=== PATIENT | female | born 1965 | race Caucasian/White ===

== ENCOUNTER 2022-07-11 18:11 | Inpatient (IN) | payer OTHER, MEDICAID ==
[~2022-07-11] VITALS: Ht 165.1 cm; Wt 99.8 kg
[2022-07-11 18:35] VITALS: BP 113/68
--- NOTE | 2022-07-11 18:36 | NUR ---
Patient taken to bed 1.
[2022-07-11] MEDS ORDERED: DILTIAZEM 25 MG/5 ML VIAL IVP ONE ×2 (19:40→22:01)
--- NOTE | 2022-07-11 20:00 | NUR ---
56YR OLD FEMALE C/O "TREMORS". SPASTIC MUSCLE TWITCHING. DENIES PAIN SOB OR CP. PT IS A RENAL PT. ON BEDSIDE FILAMENT CUTTER. HOB ELEVATED. PT IS A&OX4. RESP EVEN AND UNLABORED. GAIT UNSTEADY AND USING BEDSIDE COMMODE. SIDE RAILS UPX2. BED AT LOWEST POSITION ATORVASTATIN OMEPRAZOLE DM HTN RENAL DISEASE
[2022-07-11 20:05] LABS: PHOSPHORUS 6.9 mg/dL (2.5-4.9)
[2022-07-11 21:11] LABS: BASOPHILS # (AUTO) 0.1 K/uL (0.00-0.22); BASOPHILS % (AUTO) 0.5 % (0.0-2.0); EOSINOPHILS # (AUTO) 0.2 K/uL (0-0.4); HEMOGLOBIN 12.1 g/dL (12.0-16.0); LYMPHOCYTES # (AUTO) 1.8 K/uL (2.5-16.5); LYMPHOCYTES % (AUTO) 12.3 % (20.5-51.1); MEAN CORPUSCULAR HEMOGLOBIN 30 pg (27-31); MEAN CORPUSCULAR HGB CONC 33 g/dL (33-37); MEAN CORPUSCULAR VOLUME 92.1 fL (80-94); MONOCYTES # (AUTO) 0.9 K/uL (0.8-1.0); MONOCYTES % (AUTO) 5.7 % (1.7-9.3); NEUTROPHILS % (AUTO) 80.5 % (42.2-75.2); PLATELET COUNT (AUTO) 321 K/uL (140-450); RED BLOOD CELL COUNT(AUTO) 4.02 MIL/uL (4.20-5.40); RED CELL DISTRIBUTION WIDTH 16.6 % (11.6-13.7); WHITE BLOOD COUNT (AUTO) 14.9 K/uL (4.8-10.8)
[2022-07-11 21:29] LABS: ALBUMIN 2.9 g/dL (3.4-5.0); CARBON DIOXIDE 24.6 mmol/L (21-32); POTASSIUM 4.6 mmol/L (3.5-5.1); TOTAL BILIRUBIN 0.5 mg/dL (0.0-1.0)
[2022-07-11] MEDS ORDERED: cefTRIAXone 1,000 MG VIAL ONE (22:04)
--- NOTE | 2022-07-12 00:26 | NUR ---
PT RESTING IN BED HOB ELEVATED. RESP EVEN AND UNLABORED. PT ON BEDSIDE QUALITY SUPERVISOR. BED AT LOWEST POSITION
--- NOTE | 2022-07-12 01:41 | NUR ---
COVID SWAB COLLECTED AND SENT TO LAB
[2022-07-12] MEDS ORDERED: ZOLPIDEM 5 MG TAB ONE (01:55)
[2022-07-12] MEDS ORDERED: ALLO100T21 PO (01:59)
[2022-07-12] MEDS ORDERED: NIFE30TE5 PO (02:00)
[2022-07-12] MEDS ORDERED: ATA25 PO (02:01)
[2022-07-12] MEDS ORDERED: LYR75 PO (02:02)
[2022-07-12] MEDS ORDERED: METO25TE2 PO (02:03)
[2022-07-12] MEDS ORDERED: WARF-83 PO (02:07)
[2022-07-12] MEDS ORDERED: ASPI-1749 PO (02:09)
[2022-07-12] MEDS ORDERED: ROSU10TA1 PO (02:09)
[2022-07-12] MEDS ORDERED: MONT10TA35 PO (02:10)
[2022-07-12] MEDS ORDERED: CITA40TA13 PO (02:11)
[2022-07-12] MEDS ORDERED: CLON0.5T PO (02:11)
[2022-07-12] MEDS ORDERED: ZOLP5TAB1 PO (02:12)
[2022-07-12] MEDS ORDERED: ONDA-188 PO (02:13)
--- NOTE | 2022-07-12 03:31 | NUR ---
PATIENT IS RESTING . 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 RESP EVEN AND UNLABORED. ON 2L O2 SPO2 96%. NO DISTRESS NOTED SIDE RAILS UP X2 BED AT LOWEST POSITION. PENDING BED AVAIL FOR TELE
[2022-07-12 09:00] VITALS: BP 175/86
[2022-07-12] MEDS ORDERED: POTASSIUM CHLORIDE 10 MEQ TABER PO PRN (10:10)
[2022-07-12] MEDS ORDERED: ZOLPIDEM 5 MG TAB PO PRN (10:10)
[2022-07-12] MEDS ORDERED: DOCUSATE SODIUM 100 MG GELCAP PO PRN (10:10)
[2022-07-12] MEDS ORDERED: guaiFENesin DM 200/20 MG-10 ML 10 ML UDC PO PRN (10:10)
[2022-07-12] MEDS ORDERED: WARFARIN 5 MG TAB PO SCH (10:10)
[2022-07-12] MEDS ORDERED: ONDANSETRON 4 MG/2 ML VIAL IM/IVP PRN (10:10)
[2022-07-12] MEDS: NIFEdipine 30 MG TABER PO SCH (10:56)
[2022-07-12] MEDS: ASPIRIN 81 MG TAB.CHEW PO SCH (10:56)
[2022-07-12] MEDS: allopurinoL 100 MG TAB PO SCH (10:56)
[2022-07-12] MEDS: PREGABALIN 25 MG CAP PO SCH ×2 (11:57→21:39)
[2022-07-12 12:13] VITALS: BP 164/90
[2022-07-12 12:49] LABS: CHOL/HDL RATIO 1.8 (1-4.5); FREE T4 (FREE THYROXINE) 0.91 ng/dL (0.76-1.46); MAGNESIUM 2.1 mg/dL (1.8-2.4); THYROID STIMULATING HORMONE 1.81 uIU/mL (0.34-3.74)
[2022-07-12 12:57] LABS: PHOSPHORUS 9.1 mg/dL (2.5-4.9)
[2022-07-12 14:01] LABS: PROTHROMBIN TIME 170.9 secs (10.8-13.4)
--- NOTE | 2022-07-12 14:14 | NUR ---
DR KRAMER MADE AWARE OF CRITICAL LABS - PT 170.9 , PTT 88, INR NOT CALCULATING (LAB STATED IT WAS TOO HIGH TO CALCULATE).
--- NOTE | 2022-07-12 14:19 | NUR ---
PATIENT HAS BEEN SCREENED AND CATEGORIZED MODERATE NUTRITION RISK. PATIENT WILL BE SEEN WITHIN 3-5 DAYS OF ADMISSION. / [address]
[2022-07-12 16:00] VITALS: BP 172/83
[2022-07-12 20:00] VITALS: BP 154/80
[2022-07-12] MEDS: HYDROXYZINE HYDROCHLORIDE 25 MG TAB PO SCH (21:00)
[2022-07-12] MEDS: SIMVASTATIN 10 MG TAB PO SCH (21:39)
[2022-07-12] MEDS: ACETAMINOPHEN 325 MG TAB PO PRN (23:27)
[2022-07-13] VITALS: BP 151/63
[2022-07-13 04:00] VITALS: BP 162/73
[2022-07-13 07:09] LABS: T4 (THYROXINE) 6.3 ug/dL (4.5-12.0)
[2022-07-13 07:47] LABS: BASOPHILS # (AUTO) 0.1 K/uL (0.00-0.22); BASOPHILS % (AUTO) 0.5 % (0.0-2.0); CARBON DIOXIDE 18.5 mmol/L (21-32); EOSINOPHILS # (AUTO) 0.3 K/uL (0-0.4); EOSINOPHILS % (AUTO) 2.4 % (0.0-4.0); HEMATOCRIT 32.3 % (36-48); HEMOGLOBIN 10.6 g/dL (12.0-16.0); LYMPHOCYTES # (AUTO) 2.3 K/uL (2.5-16.5); LYMPHOCYTES % (AUTO) 15.8 % (20.5-51.1); MEAN CORPUSCULAR HEMOGLOBIN 30 pg (27-31); MEAN CORPUSCULAR HGB CONC 33 g/dL (33-37); MEAN CORPUSCULAR VOLUME 92.8 fL (80-94); MONOCYTES # (AUTO) 1.4 K/uL (0.8-1.0); MONOCYTES % (AUTO) 9.3 % (1.7-9.3); NEUTROPHILS # (AUTO) 10.4 K/uL (1.8-7.7); PLATELET COUNT (AUTO) 284 K/uL (140-450); POTASSIUM 5.5 mmol/L (3.5-5.1); RED BLOOD CELL COUNT(AUTO) 3.48 MIL/uL (4.20-5.40); RED CELL DISTRIBUTION WIDTH 16.2 % (11.6-13.7); WHITE BLOOD COUNT (AUTO) 14.5 K/uL (4.8-10.8)
[2022-07-13 08:00] VITALS: BP 148/81
[2022-07-13 08:16] LABS: PROTHROMBIN TIME 123.3 secs (10.8-13.4)
[2022-07-13 08:22] LABS: CREATININE 11.8 mg/dL (0.6-1.3)
[2022-07-13] MEDS: ASPIRIN 81 MG TAB.CHEW PO SCH (09:00)
[2022-07-13] MEDS: METOPROLOL SUCCINATE 50 MG TABER PO SCH (09:00)
[2022-07-13] MEDS: NIFEdipine 30 MG TABER PO SCH (09:00)
[2022-07-13] MEDS: HYDROcodone/APAP 7.5/325 MG 1 TAB PO PRN ×2 (09:43→15:36)
[2022-07-13] MEDS: MONTELUKAST SODIUM 10 MG TAB PO SCH (09:45)
[2022-07-13] MEDS: clonazePAM 0.5 MG TAB PO SCH (09:45)
[2022-07-13] MEDS: allopurinoL 100 MG TAB PO SCH (09:46)
[2022-07-13] MEDS: HYDROXYZINE HYDROCHLORIDE 25 MG TAB PO SCH ×2 (09:46→22:01)
[2022-07-13] MEDS: CITALOPRAM 20 MG TAB PO SCH (09:46)
[2022-07-13] MEDS: PREGABALIN 25 MG CAP PO SCH ×2 (09:47→22:02)
--- NOTE | 2022-07-13 10:05 | NUR ---
PT REQUESTED O2 TUBING EXTENSION - REQUEST CALLED IN TO RESPIRATORY DEPT.
--- NOTE | 2022-07-13 11:45 | NUR ---
DC PLANNING SW MET WITH PATIENT AT BEDSIDE TO COMPLETE ASSESSMENT.PATIENTS MOTHER JARED WAS IN THE ROOM, PATIENT PROVIDED PERMISSION FOR MOTHER TO STAY WHILE COMPLETING ASSESSMENT. PATIENT RESIDES AT HOME WITH HER MOTHER AT THE ADDRESS LISTED. PATIENT IDENTIFIED JARED (MOM) EMERGENCY CONTACT AND MDM. PATIENT REPORTS HAVING AD IN PLACE HOWEVER, REPORTS THAT SHE JUST NEEDS TO FIND IT. PATIENT REPORTS MEETING WITH PCP REGULARLY 9EVERY 3-4 MONTHS)LAST VISIT, 1 MONTH AGO. PATIENT REPORTS MEDICATION COMPLIANCE AND DENIES BARRIERS IN ACCESSING NEEDED MEDICATIONS. PATIENT REPORTS PICKING UP MEDICATIONS FROM [facility] [address] IN THE [facility], WHEN NEEDED. PATIENT REPORTS BEING AMBULATORY WITH OCCASIONAL DME ASSISTANCE; CANE. PATIENT REPORTS RECEIVING DIALYSIS AT [facility] , CHAIR TIME 12:45PM-4:15PM ON //. PATIENT REPORTS DRIVING HERSELF TO DIALYSIS APPTS. PATIENT REPORTS DIABETES HX AND REPORTS THAT DIABETES IS TYPICALLY MANAGED WELL. PATIENT DENIES HX OF HH/SNF PLACEMENT. PATIENT DENIES SA HX. PATIENT REPORTS MH HX OF ANXIETY, PATIENT CURRENTLY DOES NOT MEET WITH THERAPIST. PATIENT DECLINED RESOURCES FOR MENTAL HEALTH RESOURCES AND REPORTED THAT SHED LIKE TO GET HER HEALTH UNDER CONTROL BEFORE SEEKING MH TX. PATIENT REPORTS ADEQUATE FAMILY SUPPORT (MOM, NEIGHBORS & FRIENDS) PATIENT REPORTS DC PLAN IS TO RETURN HOME W/ MOM PROVIDING TRANSPORTATION AND AIDING IN REQUIRED CARE, IF NEEDED. SW INQUIRED ON RESOURCES NEEDED, PATIENT DECLINED AT THIS TIME.
[2022-07-13 12:00] VITALS: BP 148/81
--- NOTE | 2022-07-13 13:10 | NUR ---
SKIN ASSESSMENT DONE WITH THIS 56 Y/O PT. AAX4 ABLE TO TURN AND REPOSITION. NO OPEN SKIN. PT. IS RECEIVING HD.LEFT UPPER ARM AV SHUNT IS TAKING CARE BY DIALYSIS NURSE. PT. ADMITTED WITH MULTIPLE SKIN BRUISES AND ECCHYMOSIS TO ANTERIOR AND POSTERIOR TRUNK OF BODY AND LIMBS. PER PT. LONG TIME USE OF BLOOD THINNER. RECOMMEND TO APPLY HYDRAGUARD TO ANTERIOR AND POSTERIOR TRUNK OF BODY AND LIMBS BID AND CORNEL.
--- NOTE | 2022-07-13 15:40 | NUR ---
PT REFUSING IV SITE RESTART. PT AGREED TO SODA FOR NAUSEA AND TOOK SOME. MILDLY EFFECTIVE. PT THEN TOOK NORCO FOR C/O PAIN W WASH DOWN WITH SMALL AMT OF SODA.
--- NOTE | 2022-07-13 19:30 | NUR ---
RECEIVED PT ENDORSEMENT FROM DAY SHIFT NURSE FOR CONTINUITY OF CARE. PT IS AWAKE, ALERT AND VERBALLY RESPONSIVE. PT IS ON BED, ON RENAL DIET AND IS CONTINENT, ABLE TO GO TO RESTROOM WITH ASSIST. PT IS WITH MULTIPLE BRUISES ON EXTREMITIES. AV SHUNT ON LEFT FOREARM INTACT AND PATENT. CONTINUE MONITORING.
[2022-07-13 20:00] VITALS: BP 158/81
[2022-07-13] MEDS: SIMVASTATIN 10 MG TAB PO SCH (22:02)
--- NOTE | 2022-07-13 23:00 | NUR ---
PT BP 196/69, P 77, O2 SAT 98%, R 20, T 98.6. REPORTED TO DR. LOLA MD ORDER HYDRALAZINE 10 MG IVP Q 6 HRS PRN WHEN SBP > 160. ORDER CARRIED OUT.
--- NOTE | 2022-07-13 23:33 | NUR ---
PT AGREE TO HAVE IV LINE. IV INSERTED TO ON THE RIGHT HAND 24 G. FLUSHING WELL.
[2022-07-13] MEDS: hydrALAZINE 20 MG/ML VIAL IVP PRN (23:59)
[2022-07-14] VITALS: BP 196/69
[2022-07-14] MEDS: HYDROcodone/APAP 7.5/325 MG 1 TAB PO PRN ×2 (00:23→20:41)
--- NOTE | 2022-07-14 00:23 | NUR ---
PT COMPLAINTS OF PAIN BLE OF 04/01. PAIN MED NORCO ADMINISTERED OR JOSE RAMON.
[2022-07-14] MEDS: HYDRAGUARD CREAM TP SCH ×2 (01:13→12:47)
--- NOTE | 2022-07-14 01:23 | NUR ---
REASSESS, PAIN IS REDUCED TO 1/10. PT IS ASLEEP.
[2022-07-14 04:00] VITALS: BP 131/68
--- NOTE | 2022-07-14 06:00 | NUR ---
AV SHUNT ON LEFT FOREARM NOTED WITH MINIMAL BLEEDING, REDRESSING AND PLACE PRESSURE. PT AWAKE, ALERT AND ORIENTED.
[2022-07-14 07:36] LABS: BASOPHILS # (AUTO) 0.1 K/uL (0.00-0.22); BASOPHILS % (AUTO) 0.6 % (0.0-2.0); EOSINOPHILS # (AUTO) 0.1 K/uL (0-0.4); EOSINOPHILS % (AUTO) 0.5 % (0.0-4.0); HEMATOCRIT 31.2 % (36-48); HEMOGLOBIN 10.2 g/dL (12.0-16.0); LYMPHOCYTES # (AUTO) 2.6 K/uL (2.5-16.5); LYMPHOCYTES % (AUTO) 17.2 % (20.5-51.1); MEAN CORPUSCULAR HEMOGLOBIN 30 pg (27-31); MEAN CORPUSCULAR HGB CONC 33 g/dL (33-37); MEAN CORPUSCULAR VOLUME 93.4 fL (80-94); MONOCYTES # (AUTO) 1.2 K/uL (0.8-1.0); MONOCYTES % (AUTO) 7.9 % (1.7-9.3); NEUTROPHILS # (AUTO) 11.3 K/uL (1.8-7.7); NEUTROPHILS % (AUTO) 73.8 % (42.2-75.2); PLATELET COUNT (AUTO) 299 K/uL (140-450); RED BLOOD CELL COUNT(AUTO) 3.34 MIL/uL (4.20-5.40); RED CELL DISTRIBUTION WIDTH 16.6 % (11.6-13.7); WHITE BLOOD COUNT (AUTO) 15.3 K/uL (4.8-10.8)
[2022-07-14 07:55] LABS: PROTHROMBIN TIME 86.3 secs (10.8-13.4)
[2022-07-14 08:00] VITALS: BP_SYST 131; BP_SYST 156; BP_DIAS 68; BP_DIAS 75
[2022-07-14 08:04] LABS: ANION GAP 20.5 (8-16); CARBON DIOXIDE 26.9 mmol/L (21-32); POTASSIUM 4.4 mmol/L (3.5-5.1)
[2022-07-14 08:27] LABS: CREATININE 8.5 mg/dL (0.6-1.3)
[2022-07-14] MEDS: PREGABALIN 25 MG CAP PO SCH ×2 (10:04→20:42)
[2022-07-14] MEDS: CITALOPRAM 20 MG TAB PO SCH (10:04)
[2022-07-14] MEDS: ASPIRIN 81 MG TAB.CHEW PO SCH (10:05)
[2022-07-14] MEDS: NIFEdipine 30 MG TABER PO SCH ×3 (10:05→13:19)
[2022-07-14] MEDS: MONTELUKAST SODIUM 10 MG TAB PO SCH (10:05)
[2022-07-14] MEDS: allopurinoL 100 MG TAB PO SCH (10:05)
[2022-07-14] MEDS: METOPROLOL SUCCINATE 50 MG TABER PO SCH (10:06)
[2022-07-14] MEDS: HYDROXYZINE HYDROCHLORIDE 25 MG TAB PO SCH ×2 (10:06→20:42)
[2022-07-14] MEDS: clonazePAM 0.5 MG TAB PO SCH (10:09)
--- NOTE | 2022-07-14 10:10 | NUR ---
ALL SCHEDULED MEDS GIVEN. PT IS STABLE. NO DISTRESS NOTED. WILL CONTINUE TO MONITOR.
[2022-07-14 12:00] VITALS: BP_SYST 156; BP_SYST 173; BP_DIAS 69; BP_DIAS 75
[2022-07-14] MEDS: hydrALAZINE 20 MG/ML VIAL IVP PRN (12:07)
--- NOTE | 2022-07-14 13:45 | NUR ---
CONTACTED DR. STREET REGARDING PATIENT'S DIALYSIS TREATMENT TODAY. DIALYSIS NOTIFIED DR. STREET TO HOLD DIALYSIS DUE TO BLEEDING AT DIALYSIS. MD AGREES TO HOLD TREATMENT UNTIL BLEEDING STOPS. WILL RESUME TOMORROW PER MD.
[2022-07-14 16:00] VITALS: BP_SYST 140; BP_SYST 173; BP_DIAS 53; BP_DIAS 69
--- NOTE | 2022-07-14 17:45 | NUR ---
CHECKED ON PATIENT. PT IS STABLE. NO DISTRESS NOTED. WILL CONTINUE TO MONITOR.
--- NOTE | 2022-07-14 19:40 | NUR ---
ENDORSED TO LEGAL MEDIATOR NURSE FOR CONTINUITY OF CARE. PT IS STABLE.
--- NOTE | 2022-07-14 19:41 | NUR ---
GET THE REPORT FROM MORNING NURSE RADHA, PATIENT IS LYING ON BED, PATIENT IS ALERT ORIENTED X4, ALL FALL PRECAUTION MEASURE ARE IN PLACE, CALL LIGHT IS WITHIN THE REACH, WILL CONTINUE TO MONITOR PATIENT.
[2022-07-14 20:00] VITALS: BP 119/59
[2022-07-14] MEDS: SIMVASTATIN 10 MG TAB PO SCH (20:43)
--- NOTE | 2022-07-14 20:44 | NUR ---
PATIENT IS LYING ON BED, NO ANY COMPLAIN OF SHORTNESS OF BREATH AT THIS TIME, VITAL SIGN IS WITHIN THE NORMAL RANGE, PATIENT IS COMPLAINING OF PAIN 6/10, GAVE NORCO 7.5MG PO PRN PER DOCTOR ORDER,ALL OTHER SCHEDULE MEDICATION IS GIVEN PER DOCTOR ORDER, ASK PATIENT ABOUT ALLERGY TO SIMVASTATIN, PATIENT SAID SHE TAKE THAT AND SHE DID NOT HAD ANY REACTION OR ADVERSE EFFECT, SHE WANTS TO TAKE IT, CALL LIGHT IS WITHIN THE REACH, WILL CONTINUE TO MONITOR PATIENT.
[2022-07-15] VITALS: BP 145/53
--- NOTE | 2022-07-15 00:05 | NUR ---
PATIENT IV LINE IS INFILTRATED, PATIENT IS REFUSING TO PUT NEW IV LINE AT THIS TIME, CALL LIGHT IS WITHIN THE REACH, WILL CONTINUE TO MONITOR PATIENT.
[2022-07-15] MEDS: HYDRAGUARD CREAM TP SCH ×2 (00:43→13:00)
--- NOTE | 2022-07-15 00:45 | NUR ---
PATIENT IS LYING ON BED, NO ANY COMPLAIN OF PAIN OR SHORTNESS OF BREATH AT THIS TIME, VITAL SIGN IS WITHIN THE NORMAL RANGE, CALL LIGHT IS WITHIN THE REACH, WILL CONTINUE TO MONITOR PATIENT.
[2022-07-15 04:00] VITALS: BP 149/57
--- NOTE | 2022-07-15 04:27 | NUR ---
PATIENT IS LYING ON BED, NO ANY COMPLAIN OF PAIN OR SHORTNESS OF BREATH AT THIS TIME, VITAL SIGN IS WITHIN THE NORMAL RANGE, ALL OTHER SCHEDULE MEDICATION IS GIVEN PER DOCTOR ORDER, CALL LIGHT IS WITHIN THE REACH, WILL CONTINUE TO [id number] PATIENT.
[2022-07-15 06:40] LABS: BASOPHILS # (AUTO) 0.1 K/uL (0.00-0.22); BASOPHILS % (AUTO) 0.5 % (0.0-2.0); EOSINOPHILS # (AUTO) 0.4 K/uL (0-0.4); EOSINOPHILS % (AUTO) 2.6 % (0.0-4.0); HEMATOCRIT 29.2 % (36-48); HEMOGLOBIN 9.5 g/dL (12.0-16.0); LYMPHOCYTES # (AUTO) 3.5 K/uL (2.5-16.5); LYMPHOCYTES % (AUTO) 23.4 % (20.5-51.1); MEAN CORPUSCULAR HEMOGLOBIN 30 pg (27-31); MEAN CORPUSCULAR HGB CONC 33 g/dL (33-37); MEAN CORPUSCULAR VOLUME 92.6 fL (80-94); MONOCYTES # (AUTO) 1.4 K/uL (0.8-1.0); MONOCYTES % (AUTO) 9.4 % (1.7-9.3); NEUTROPHILS # (AUTO) 9.5 K/uL (1.8-7.7); NEUTROPHILS % (AUTO) 64.1 % (42.2-75.2); PLATELET COUNT (AUTO) 310 K/uL (140-450); RED BLOOD CELL COUNT(AUTO) 3.15 MIL/uL (4.20-5.40); RED CELL DISTRIBUTION WIDTH 16.2 % (11.6-13.7); WHITE BLOOD COUNT (AUTO) 14.9 K/uL (4.8-10.8)
[2022-07-15 06:49] LABS: ANION GAP 23.3 (8-16); POTASSIUM 5.3 mmol/L (3.5-5.1)
[2022-07-15 06:50] LABS: CREATININE 11.1 mg/dL (0.6-1.3)
[2022-07-15 06:53] LABS: PROTHROMBIN TIME 61.5 secs (10.8-13.4)
--- NOTE | 2022-07-15 07:18 | NUR ---
GAVE THE REPORT TO MORNING NURSE KIRBY FOR CONTINUOS OF CARE , PATIENT IS STABLE.
--- NOTE | 2022-07-15 07:37 | NUR ---
got report from the night nurse, PT SLEEPING no sob, .[email or web address]
[2022-07-15 08:00] VITALS: BP 138/58
[2022-07-15] MEDS: CITALOPRAM 20 MG TAB PO SCH (08:34)
[2022-07-15] MEDS: NIFEdipine 30 MG TABER PO SCH (08:35)
[2022-07-15] MEDS: HYDROXYZINE HYDROCHLORIDE 25 MG TAB PO SCH ×2 (08:35→20:11)
[2022-07-15] MEDS: ASPIRIN 81 MG TAB.CHEW PO SCH (08:35)
[2022-07-15] MEDS: clonazePAM 0.5 MG TAB PO SCH (08:38)
[2022-07-15] MEDS: MONTELUKAST SODIUM 10 MG TAB PO SCH (08:39)
[2022-07-15] MEDS: PREGABALIN 25 MG CAP PO SCH ×2 (08:39→20:11)
[2022-07-15] MEDS: allopurinoL 100 MG TAB PO SCH (08:39)
[2022-07-15] MEDS: METOPROLOL SUCCINATE 50 MG TABER PO SCH (08:39)
--- NOTE | 2022-07-15 10:22 | NUR ---
PT IS IN DIALYSIS NOW. [id number]
[2022-07-15] MEDS ORDERED: MECLIZINE 25 MG TAB PO PRN (11:40)
[2022-07-15] MEDS ORDERED: POLYETHYLENE GLYCOL 17 GM/PKT PO SCH (11:44)
[2022-07-15 12:00] VITALS: BP 111/35
--- NOTE | 2022-07-15 12:13 | NUR ---
DIALYSIS STOPPED BY ORDER ACCORDING TO THE DIALYSIS NURSE, TWO LITTER OUT. PT GIVEN MED FOR DIZZINESS ORDERED, AND ALSO FOR CONSTIPATION .[id number]
--- NOTE | 2022-07-15 13:25 | NUR ---
PT REFUSED THE MORNING CHEWABLE ASPIRIN, SAYING SHE NG NOT NEED NOW,MED RETURN TO [facility], SAYING SHE NG NOT NEED NOW.[id number] .[id number]
[2022-07-15 16:00] VITALS: BP 128/56
--- NOTE | 2022-07-15 19:58 | NUR ---
GET THE REPORT FROM MORNING NURSE KIRBY , PATIENT IS LYING ON BED, PATENT IS ALERT ORIENTED X4, ALL FALL PRECAUTION MEASURE ARE IN PLACE, CALL LIGHT IS WITHIN THE REACH, WILL CONTINUE TO MONITOR PATIENT.
[2022-07-15 20:00] VITALS: BP 92/50
[2022-07-15] MEDS: SIMVASTATIN 10 MG TAB PO SCH (20:13)
--- NOTE | 2022-07-15 20:15 | NUR ---
PATIENT IS LYING ON BED, NO ANY COMPLAIN OF PAIN OR SHORTNESS OF BREATH AT THIS TIME, VITAL SIGN IS WITHIN THE NORMAL RANGE, ALL SCHEDULE MEDICATION IS GIVEN PER DOCTOR ORDER, CALL LIGHT IS WITHIN THE REACH, WILL CONTINUE TO MONITOR PATIENT.
--- NOTE | 2022-07-15 21:01 | NUR ---
MASSAGE DOCTOR LOLA ABOUT PATIENT REFUSING TO PUT NEW IV, AND ITS BLEEDING FROM PREVIOUS IV SITE, WAITING FOR DOCTOR TO RESPONSE, CALL LIGHT IS WITHIN THE REACH, WILL CONTINUE TO MONITOR PATIENT.
[2022-07-15] MEDS ORDERED: LIDOCAINE MPF 1% 5 ML ONE (21:32)
[2022-07-15] MEDS ORDERED: cefTRIAXone 1,000 MG VIAL ONE (21:32)
--- NOTE | 2022-07-15 21:51 | NUR ---
DOCTOR SWITCHED IV ROCEPHIN TO IM, GAVE ROCEPHIN 1GN WITH XYLOCAINE 1% IM , CALL LIGHT IS WITHIN THE REACH, WILL CONTINUE TO MONITOR PATIENT.
[2022-07-15] MEDS ORDERED: cefTRIAXone 1,000 MG in LIDOCAINE MPF 1% 2.1 ML IM SCH (22:00)
[2022-07-15] MEDS: ACETAMINOPHEN 325 MG TAB PO PRN (22:51)
--- NOTE | 2022-07-15 22:56 | NUR ---
PATIENT IS COMPLAINING OF RIGHT HAND PAIN, GAVE TYLENOL 650 MG PO PRN PER DOCTOR ORDER, CALL LIGHT IS WITHIN THE REACH, WILL CONTINUE TO MONITOR PATIENT.
[2022-07-16] VITALS: BP 100/63
[2022-07-16] MEDS: HYDRAGUARD CREAM TP SCH ×2 (01:00→12:31)
[2022-07-16 04:00] VITALS: BP 128/59
[2022-07-16 06:46] LABS: PROTHROMBIN TIME 37.1 secs (10.8-13.4)
[2022-07-16 06:55] LABS: BASOPHILS # (AUTO) 0.2 K/uL (0.00-0.22); BASOPHILS % (AUTO) 1.1 % (0.0-2.0); EOSINOPHILS # (AUTO) 0.4 K/uL (0-0.4); EOSINOPHILS % (AUTO) 2.4 % (0.0-4.0); HEMATOCRIT 29.9 % (36-48); HEMOGLOBIN 9.6 g/dL (12.0-16.0); LYMPHOCYTES # (AUTO) 3.9 K/uL (2.5-16.5); LYMPHOCYTES % (AUTO) 25.8 % (20.5-51.1); MEAN CORPUSCULAR HEMOGLOBIN 30 pg (27-31); MEAN CORPUSCULAR HGB CONC 32 g/dL (33-37); MEAN CORPUSCULAR VOLUME 94.3 fL (80-94); MONOCYTES # (AUTO) 1.5 K/uL (0.8-1.0); MONOCYTES % (AUTO) 9.9 % (1.7-9.3); NEUTROPHILS # (AUTO) 9.3 K/uL (1.8-7.7); NEUTROPHILS % (AUTO) 60.8 % (42.2-75.2); PLATELET COUNT (AUTO) 335 K/uL (140-450); RED BLOOD CELL COUNT(AUTO) 3.17 MIL/uL (4.20-5.40); RED CELL DISTRIBUTION WIDTH 16.6 % (11.6-13.7); WHITE BLOOD COUNT (AUTO) 15.2 K/uL (4.8-10.8)
--- NOTE | 2022-07-16 07:06 | NUR ---
GAVE THE REPORT TO MORNING NURSE LI FOR CONTINUOS OF CARE, PATIENT IS STABLE.
[2022-07-16 07:26] LABS: ANION GAP 27.9 (8-16); POTASSIUM 4.9 mmol/L (3.5-5.1)
[2022-07-16 07:45] LABS: CREATININE 8.8 mg/dL (0.6-1.3)
[2022-07-16 08:00] VITALS: BP 132/55
[2022-07-16] MEDS: HYDROXYZINE HYDROCHLORIDE 25 MG TAB PO SCH (09:00)
[2022-07-16] MEDS: ASPIRIN 81 MG TAB.CHEW PO SCH (09:00)
[2022-07-16] MEDS: NIFEdipine 30 MG TABER PO SCH (09:02)
[2022-07-16] MEDS: clonazePAM 0.5 MG TAB PO SCH (09:03)
[2022-07-16] MEDS: MONTELUKAST SODIUM 10 MG TAB PO SCH (09:04)
[2022-07-16] MEDS: allopurinoL 100 MG TAB PO SCH (09:04)
[2022-07-16] MEDS: METOPROLOL SUCCINATE 50 MG TABER PO SCH (09:04)
[2022-07-16] MEDS: PREGABALIN 25 MG CAP PO SCH (09:04)
[2022-07-16] MEDS: CITALOPRAM 20 MG TAB PO SCH (09:05)
[2022-07-16] MEDS ORDERED: NIFE60TE5 PO (11:43)
[2022-07-16 11:46] VITALS: BP 143/75
--- NOTE | 2022-07-16 13:29 | NUR ---
0730 Pt. in bed, resting quietly, vss, no distress 0900 MD at bedside, pt. to go home today if no bleeding noted at av shunt site. Given am meds, held aspirin. 1000 No bleeding at av shunt site, new dressing applied. Nephrology md at bedside, ok for pt. to go home from his standpoint. 1230 Dc instructions gone over with pt, she verbalized understanding, signed copy given to staff, pt. has her copy for take home. Pt. to follow up with her pmd and is not to take coumadin or aspirin until she sees her doctor. All belongings accounted for. 1300 Pt. taken to her car in wheelchair, no distress noted, her mother is to drive her home. She will follow up with case management on Monday for Neurology outpt. appt.
== END 2022-07-16 13:20 | disposition home or self-care (01) | DRG 291 ==
LOC: MED 18:11 → MTU 07-12 00:02
PROVIDERS: ADMIT Family Medicine; ATTEND Family Medicine
DX: I13.2 Hypertensive heart and chronic kidney disease with heart failure and with stage 5 chronic kidney disease, or end stage renal disease (principal); E43 Unspecified severe protein-calorie malnutrition; I50.43 Acute on chronic combined systolic (congestive) and diastolic (congestive) heart failure; N17.0 Acute kidney failure with tubular necrosis; N18.6 End stage renal disease; J96.01 Acute respiratory failure with hypoxia; E87.1 Hypo-osmolality and hyponatremia; L97.129 Non-pressure chronic ulcer of left thigh with unspecified severity; L97.119 Non-pressure chronic ulcer of right thigh with unspecified severity; T82.838A Hemorrhage due to vascular prosthetic devices, implants and grafts, initial encounter; E11.22 Type 2 diabetes mellitus with diabetic chronic kidney disease; Z20.822 Contact with and (suspected) exposure to COVID-19; F41.9 Anxiety disorder, unspecified; E11.319 Type 2 diabetes mellitus with unspecified diabetic retinopathy without macular edema; Z60.2 Problems related to living alone; E83.39 Other disorders of phosphorus metabolism; E83.51 Hypocalcemia; D63.8 Anemia in other chronic diseases classified elsewhere; I48.0 Paroxysmal atrial fibrillation; G89.4 Chronic pain syndrome; E11.40 Type 2 diabetes mellitus with diabetic neuropathy, unspecified; R79.1 Abnormal coagulation profile; Y83.8 Other surgical procedures as the cause of abnormal reaction of the patient, or of later complication, without mention of misadventure at the time of the procedure; Z88.8 Allergy status to other drugs, medicaments and biological substances; Z98.42 Cataract extraction status, left eye; Z98.41 Cataract extraction status, right eye; Y92.89 Other specified places as the place of occurrence of the external cause; Z68.36 Body mass index [BMI] 36.0-36.9, adult
CPT/HCPCS: 36415; 71045; 73630; 80048; 80053; 82150; 82330; 83036; 83690; 83735; 83880; 84100; 84436; 84439; 84443; 84479; 84484; 85025; 85610; 85730; 87081; 93005; 93925; 93970; 93971; 96365; 96375; 99285; J0360; J0696; J2001; J2405; J3490; J7060; J8597; Q0092